=== PATIENT | female | born 1975 | race Caucasian/White ===

== ENCOUNTER 2024-02-27 00:48 | Day surgery (SDC) | payer OTHER, SELFPAY ==
[2024-02-18 10:15] VITALS: BMI 25.8
[2024-02-27 08:50] VITALS: BP 125/89; PULSE 80; RESP 18; TEMP 36.3; O2SAT 100
[2024-02-27] MEDS: LACTATED RINGERS 1,000 ML 150 ML IV CONT (09:03)
--- NOTE | 2024-02-27 09:27 | P.PNAN_ITS ---
Anes - Initial Pre Proc Eval Procedure: Operation Date: 02/27/24 10:00 Proposed Procedures p Screening Colonoscopy - Ankit Gonzalez MD Date/Time: 02/27/24 09:27 Surgeon: Ankit Gonzalez MD Pre Op Diagnosis: neoplasm screening Patient Data Age: 48 Gender: F Height: 1.7 m Weight: 77.8 kg Last Vital Signs Temp 97.3 F L 02/27/24 08:50 Pulse 80 02/27/24 08:50 Resp 18 02/27/24 08:50 BP 125/89 02/27/24 08:50 Pulse Ox 100 02/27/24 08:50 O2 Del Method Room Air 02/27/24 08:50 Allergies Allergy/AdvReac Type Severity Reaction Status Date / Time Penicillins Allergy Rash Verified 02/27/24 08:49 Home Medications Medication Instructions Recorded Confirmed Type valacyclovir 1 gram tablet 500 mg PO BID 7 days #14 tabs 12/25/21 02/18/24 Rx (Valtrex) escitalopram oxalate 10 mg tablet 10 mg PO DAILY 02/18/24 02/18/24 History nortriptyline 10 mg capsule 10 mg PO DAILY 02/18/24 02/18/24 History Patient hx anesthesia problems: none Family hx anesthesia problems: none Results Review: All pre-operative results and documents have been reviewed as part of the pre- operative evaluation. [facility] Social History Social History Smoking status: Never smoker Alcohol intake: current Alcohol use details: weekends Substance use: never Substance use type: does not use Living arrangements: with family Spiritual care concerns: No Anes - Eval Final PreProcedure Day of Procedure 02/27/24 09:27 Patient weight: normal Heart: regular rate and rhythm Lungs: clear to auscultation Airway: Mallampati scale class II Neurological: alert and oriented Last oral intake: >/= 8 hours ASA classification: II Emergent: no Anesthetic plan: proceed Anesthesia type and monitoring: general GIVS and standard monitoring Results Review: All pre-operative results and documents have been reviewed as part of the pre- operative evaluation. Informed Consent: The patient's anesthetic plan and its attendant risks and benefits were discussed with the patient/family/POA. Questions were solicited and answers provided to the satisfaction of the patient/family/POA.
--- NOTE | 2024-02-27 09:55 | PM.HPGS ---
History of Present Illness History of Present Illness Consent: Risks, benefits, and alternatives have been discussed and questions answered. Patient agrees to proceed with procedure. Chief complaint: neoplasm screening Narrative: Rosa Maria Pradhan is a 48 year old female here for first screening colonoscopy Review of Systems Review of Systems: All systems reviewed & are unremarkable except as noted in HPI and below PMFSH Past Medical History Medical History (Updated 02/27/24 @ 09:55 by Ankit Gonzalez MD) Colon cancer screening Social History Social History Smoking status: Never smoker Alcohol intake: current Alcohol use details: weekends Substance use: never Substance use type: does not use Living arrangements: with family Spiritual care concerns: No Meds Home Medications and Allergies Home Medications Medication Instructions Recorded Confirmed Type valacyclovir 1 gram tablet 500 mg PO BID 7 days #14 tabs 12/25/21 02/18/24 Rx (Valtrex) escitalopram oxalate 10 mg tablet 10 mg PO DAILY 02/18/24 02/18/24 History nortriptyline 10 mg capsule 10 mg PO DAILY 02/18/24 02/18/24 History Allergies Allergy/AdvReac Type Severity Reaction Status Date / Time Penicillins Allergy Rash Verified 02/27/24 08:49 Vital Signs Vital Signs - 24 hr 02/27/24 08:50 Temperature 97.3 F L Pulse Rate 80 Respiratory Rate 18 Blood Pressure 125/89 Pulse Oximetry 100 Oxygen Delivery Room Air Exam Const: General: comfortable and no acute distress HENMT: Face/Nose/Sinus: Normal nares present Eyes: General: appearance normal, both eyes and all related structures Neck: Neck: no JVD Resp: Auscultation: clear to auscultation bilaterally Cardio: Rate: regular rate Rhythm: regular rhythm GI: Inspection: non-distended GI Palp: Yes Soft to palpation Skin: General skin exam: normal color Neuro: General: gait normal Speech: normal speech Extrem: General: normal to inspection Psych: Mental Status: mental status grossly normal Assessment and Plan Assessment and plan (1) Colon cancer screening: Code(s): Z12.11 - Encounter for screening for malignant neoplasm of colon Status: Acute Assessment and Plan: colonoscopy
[2024-02-27 10:15] VITALS: BP 113/66; PULSE 86; RESP 22; O2SAT 100
[2024-02-27 10:25] VITALS: BP 113/74; PULSE 74; RESP 16; O2SAT 100
[2024-02-27 10:35] VITALS: BP 121/80; PULSE 65; RESP 13; O2SAT 100
== END 2024-02-27 10:36 | disposition home or self-care (01) ==
PROVIDERS: PCP Internal Medicine; Visit Provider Internal Medicine Gastroenterology
PROC: 0DJD8ZZ Inspection of Lower Intestinal Tract, Via Natural or Artificial Opening Endoscopic (ICD-10-PCS; CPT 45378; principal; 2024-02-27 10:00)
DX: Z12.11 Encounter for screening for malignant neoplasm of colon (principal); D12.5 Benign neoplasm of sigmoid colon; K64.8 Other hemorrhoids
CPT/HCPCS: 45385; 88305; J2704; J7120

== ENCOUNTER 2025-03-23 07:47 | Outpatient (CLI) | payer OTHER, SELFPAY ==
--- OUTSIDE RECORDS SUMMARY | 2025-03-23 07:54 | XMS_ITS | Clinical Summary ---
Author Organization [facility] Administrative Offices Address [address] [place] [id number] Care Team Providers Care Granulator Name Role Phone Navi Leroy MD Primary Care Provider Allergies Active Allergy Reactions Criticality Noted Date Comments Penicillins Hives High 09/12/2017 Medications escitalopram oxalate (LEXAPRO) 10 mg tablet TK 1 T PO D 11/01/2019 Active nortriptyline (PAMELOR) 10 mg capsule 11/01/2019 Active Active Problems Problem Noted Date Diagnosed Date Tobacco use 03/12/2019 Left sided chest pain Pain in both lower extremities Family History Medical History Relation Name Comments High Cholesterol Father Hypertension Father Healthy Maternal Grandfather Healthy Maternal Grandmother Healthy Mother COPD Paternal Grandfather Diabetes Paternal Grandmother Heart Disease Paternal Grandmother Hypertension Paternal Grandmother Relation Name Status Comments Father Alive Maternal Grandfather Alive Maternal Grandmother Alive Mother Alive Paternal Grandfather Paternal Grandmother Social History Tobacco Use Types Packs/Day Years Used Date Smoking Tobacco: Former Smokeless Tobacco: Never Tobacco Cessation:Counseling Given: Not Answered Comments:occ Alcohol Use Standard Drinks/Week Comments Yes 0 (1 standard drink = 0.6 oz pur e alcohol) ON WEEKENDS Comments No Sex and Gender Information Value Date Recorded Sex Assigned at Not on file Legal Sex Female 10:23 AM CDT Gender Identity Not on file Sexual Orientation Not on file 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 Not on file Not on file Last Filed Vital Signs Vital Sign Reading Time Taken Comments Blood Pressure 100/68 10/01/2022 10:08 AM FENCE ERECTOR SUPERVISOR Pulse 81 03/13/2019 12:06 PM CDT Temperature 36.7 C (98.1 F) 03/13/2019 12:06 PM CDT Respiratory Rate 14 03/13/2019 12:06 PM CDT Oxygen Saturation 99% 03/13/2019 12:06 PM CDT Inhaled Oxygen Concentration - - Weight 80.7 kg (178 lb) 10/01/2022 10:08 AM FENCE ERECTOR SUPERVISOR Height 170.2 cm (5' 7 ) 10/01/2022 10:08 AM FENCE ERECTOR SUPERVISOR Body Mass Index 27.88 10/01/2022 10:08 AM FENCE ERECTOR SUPERVISOR Plan of Treatment Health Maintenance Due Date Last Done Comments DTAP/TDAP/TD VACCINES (1 - Tdap) 1994 HEPATITIS B VACCINES (1 of 3 - 19+ 3-dose series) 1994 COLORECTAL SCREENING 2020 Colorectal Cancer Screening 2020 FIT-DNA Q 3 years 2020 FIT/FOBT Q 1 year 2020 Flex Sig/CT Colonography Q 5 years 2020 BREAST CANCER SCREENING 10/01/2023 10/01/20, 10/01/2021, 01/10/2020, Additional history exists INFLUENZA VACCINE (#1) 2024 PAP SMEAR 10/01/2025 10/01/2022, 09/11, 11/11/2019 CERVICAL CANCER SCREENING 10/01/2027 HPV/Cotest (21-29) 10/01/2027 10/01/2022, 1 12/01/2020, 11/11/2019 HPV/Cotest (30-65) 10/01/2027 10/01/2022, 1 12/01/2020, 11/11/2019 Procedures Procedure Name Priority Date/Time Associated Diagnosis Comments MAMMO 3D WARREN SCREEN BILAT W OR WO CAD Routine 10/01/2022 10:56 AM FENCE ERECTOR SUPERVISOR Visit for screening mammogram CERV/VAG CYTO SCREEN PAP RLFX HPV Routine 10/01/2022 10:45 AM FENCE ERECTOR SUPERVISOR Encounter for gynecological examination with abnormal finding from Last 3 Months or Most Recently Relevant to Health Maintenance Results * MAMMO SCRN BILAT 3D WARREN W OR WO CAD (10/01/2022 10:56 AM FENCE ERECTOR SUPERVISOR) Anatomical Region Laterality Modality Breast Bilateral Mammography 10/01/2022 10:5 6 AM FENCE ERECTOR SUPERVISOR Impressions 10/02/2022 1:49 PM FENCE ERECTOR SUPERVISOR IMPRESSION: No mammographic evidence of malignancy in the bilateral breasts. Routine screening mammography is recommended in 1 year. OVERALL FINAL ASSESSMENT: BI-RADS CATEGORY 1 - Negative DICTATION LOCATION: [facility] Narrative 10/02/2022 1:49 PM FENCE ERECTOR SUPERVISOR EXAMINATION: BILATERAL SCREENING DIGITAL MAMMOGRAPHY WITH TOMOSYNTHESIS AND CAD DATE: 10/01/2022 10:56 AM HISTORY: Routine screening mammography. COMPARISON: Multiple prior mammograms with dates ranging from 10/01/2021 to 09/23/2016. TECHNIQUE: A bilateral screening mammogram was performed. Low-dose full-field digital breast tomosynthesis examination was performed with 2D and 3D acquisitions. Examination is read in conjunction with computer aided detection. BREAST COMPOSITION: The breasts are heterogeneously dense, which may obscure small masses. FINDINGS: There are no suspicious masses, suspicious calcifications, or other suspicious findings in either breast. There has been no suspicious interval change. Computer aided detection was used in the interpretation of this examination. Procedure Note Marko Rodriguez MD - 10/02/2022 EXAMINATION: BILATERAL SCREENING DIGITAL MAMMOGRAPHY WITH TOMOSYNTHESIS AND CAD DATE: 10/01/2022 10:56 AM HISTORY: Routine screening mammography. COMPARISON: Multiple prior mammograms with dates ranging from 10/01/2021 to 09/23/2016. TECHNIQUE: A bilateral screening mammogram was performed. Low-dose full-field digital breast tomosynthesis examination was performed with 2D and 3D acquisitions. Examination is read in conjunction with computer aided detection. BREAST COMPOSITION: The breasts are heterogeneously dense, which may obscure small masses. FINDINGS: There are no suspicious masses, suspicious calcifications, or other suspicious findings in either breast. There has been no suspicious interval change. Computer aided detection was used in the interpretation of this examination. IMPRESSION: No mammographic evidence of malignancy in the bilateral breasts. Routine screening mammography is recommended in 1 year. OVERALL FINAL ASSESSMENT: BI-RADS CATEGORY 1 - Negative DICTATION LOCATION: [facility] Mili Longoria NP MAMMO ORDERABLES Final Result * CERV/VAG CYTO SCREEN PAP RLFX HPV (10/01/2022 10:45 AM FENCE ERECTOR SUPERVISOR) CLINICAL INFORMATION Ángel PenaJulio Cesar Chen Comment:NON POSTMENOPAUSAL LAST MENSTRUAL PERIOD Ángel PenaJulio Cesar Chen Comment:[id number] PREV PAP: Ángel Chen Comment:NONE GIVEN PREV BX: Ángel Chen Comment:NONE GIVEN SOURCE Ángel Chen Comment:Endocervix ADEQUACY: Ángel JeanJulio Cesar Chen Comment: Satisfactory for evaluation. Endocervical/transformation zone component present. PAP INTERP Ángel Chen Comment:Negative for intraep ithelial lesion or malignancy. COMMENT (PAP TEST) Q uest JeanJulio Cesar Chen Comment: This Pap test has been evaluated with computer assisted technology. SPORTS BOOK SERVER: Qu eileen Chen Comment: LMT, CT(ASCP) CT screening location: [place] [address] Administration [place] [facility] REVIEW SPORTS BOOK SERVER: Ángel Chen Comment: DDS, CT(ASCP) CT screening location: [place] [address] Administration [place] [facility] EXPLANATORY NOTE Que st Elizabeth Chen Comment: EXPLANATORY NOTE: The Pap is a screening test for cervical cancer. It is not a diagnostic test and is subject to false negative and false positive results. It is most reliable when a satisfactory sample, regularly obtained, is submitted with relevant clinical findings and history, and when the Pap result is evaluated along with historic and current clinical information. Test Performed at: [facility] [address] [place] [id number] [facility] Genital SWAB OF ENDOCERVIX / Unknown 10/01/2022 10:45 AM FENCE ERECTOR SUPERVISOR 10/01/2022 10:29 PM FENCE ERECTOR SUPERVISOR Mili Longoria NP PATHOLOGY/CYTOLOGY ORDERABLES Final Result [facility] [phone] [facility] [address] [place] [id number] from Last 3 Months or Most Recently Relevant to Health Maintenance Insurance [employer] OPEN ACCESS Advance Directives For more information, please contact: [phone] * Full Code (Latest Code Status on File) Date Activated Date Inactivated Comments 10/08/2017 1:08 PM 10/08/2017 8:08 PM Care Teams Granulator Relationship Specialty Start Date End Date Navi Leroy MD [address] [place] [address] PCP - General 10/31/15
--- OUTSIDE RECORDS SUMMARY | 2025-03-23 07:55 | XMS_ITS | Referral Summary ---
Author Organization [facility] Address [address] [place] [address] Care Team Providers Care Manager Bakery Name Role Phone Navi Leroy MD Primary Care Provider [phone] Allergies Active Allergy Reactions Criticality Noted Date Comments Penicillins Hives High 09/12/2017 Medications escitalopram (LEXAPRO) 10 mg tablet Take 10 mg by mouth daily 07/09/2021 Active nortriptyline (PAMELOR) 10 mg capsule 06/17/2021 Active MAGNESIUM ORAL Take by mouth Active phenylephrine/di phenhydramine (ALLERGY AND SINUS RELIEF ORAL) Take by mouth Active Active Problems Problem Noted Date Diagnosed Date Allergic rhinitis Social History Tobacco Use Types Packs/Day Years Used Date Smoking Tobacco: Every Day Cigarettes Smokeless Tobacco: Never AUDIT-C Answer Date Recorded Q1: How often do you have a drink containing alc ohol? 2-4 times a month 07/19/2021 Q2: How many drinks containi ng alcohol do you have on a typical day when you are drinking? 5 or 6 07/19/2021 Frequency of Binge Drinking Not on file 07/2021 Personal Safety Answer Date Recorded Getting School Help Needed Not on file 12/31 Comments Unknown Sex and Gender Information Value Date Recorded Sex Assigned at Not on file Legal Sex Female 10:15 AM DENTAL HYGIENE PROFESSOR Gender Identity Not on file Sexual Orientation Not on file Last Filed Vital Signs Vital Sign Reading Time Taken Comments Blood Pressure 121/85 07/19/2021 8:31 AM CDT Pulse - - Temperature - - Respiratory Rate - - Oxygen Saturation - - Inhaled Oxygen Concentration - - Weight 72.6 kg (160 lb) 07/19/2021 8:31 AM CDT Height 170.2 cm (5' 7 ) 07/19/2021 8:31 AM CDT Body Mass Index 25.06 07/19/2021 8:31 AM CDT Plan of Treatment Not on file Insurance [employer] [id number] OPEN ACCESS Care Teams Manager Bakery Relationship Specialty Start Date End Date Navi Leroy MD PCP - General Internal Medicine 06/05/21
--- OUTSIDE RECORDS SUMMARY | 2025-03-23 07:55 | XMS_ITS | Clinical Summary ---
Author Organization [facility] Address [address] [place] [address] Care Team Providers Care Pallet Stone Positioner Name Role Phone Navi Leroy MD Primary Care Provider [phone] Allergies Active Allergy Reactions Criticality Noted Date Comments Penicillins Hives High 09/12/2017 Medications escitalopram (LEXAPRO) 10 mg tablet Take 10 mg by mouth daily 07/09/2021 Active nortriptyline (PAMELOR) 10 mg capsule 06/17/2021 Active MAGNESIUM ORAL Take by mouth Active phenylephrine/di phenhydramine (ALLERGY AND SINUS RELIEF ORAL) Take by mouth Active Active Problems Problem Noted Date Diagnosed Date Allergic rhinitis Medical History Medical History Date Comments Allergic rhinitis Anxiety Family History Medical History Relation Name Comments No Known Problems Father No Known Problems Mother Relation Name Status Comments Father Mother Social History Tobacco Use Types Packs/Day Years [...] on file Legal Sex Female 10:15 AM CLINIC LEAD Gender Identity Not on file Sexual Orientation Not on file Obstetrics History Last Filed Vital Signs Vital Sign Reading [...] Plan of Treatment Not on file Insurance [employer] OPEN ACCESS Care Teams Pallet Stone Positioner Relationship Specialty Start Date End Date Navi Leroy MD PCP - General Internal Medicine 06/05/21
--- OUTSIDE RECORDS SUMMARY | 2025-03-23 07:55 | XMS_ITS | Clinical Summary ---
Author Organization [facility] Address [address] [place] [address] Care Team Providers Care Manager Imaging Name Role Phone Navi Leroy MD Primary Care Provider [phone] Allergies Active Allergy Reactions Criticality Noted Date Comments Penicillins Hives 06/16/2024 Medications nortriptyline (PAMELOR) 10 MG capsule take 2 capsules by mouth every day at bedtime 05/19/2024 Active escitalopram (LEXAPRO) 10 MG tablet Take 1 tablet (10 mg total) by mouth daily. 06/08/2024 Active Immunizations Immunization Administration Dates Next Due Tdap (Boostrix) 06/16/2024 Social History Tobacco Use Types Packs/Day Years Used Date Smoking Tobacco: Never Smokeless Tobacco: Never Tobacco Cessation:Counseling Given: Not Answered Alcohol Use Standard Drinks/Week Comments Yes 0 (1 standard drink = 0.6 oz pur e alcohol) social Comments No Sex and Gender Information Value Date Recorded Sex Assigned at Not on file Legal Sex Female 5:51 PM CHIEF NURSE Gender Identity Not on file Sexual Orientation Not on file Last Filed Vital Signs Vital Sign Reading Time Taken Comments Blood Pressure 135/108 06/16/2024 10:01 AM CDT Pulse 88 06/16/2024 10:01 AM CDT Temperature 36.7 C (98 F) 06/16/2024 10:01 AM CDT Respiratory Rate 18 06/16/2024 10:01 AM CDT Oxygen Saturation 100% 06/16/2024 10:01 AM CDT Inhaled Oxygen Concentration - - Weight 77.1 kg (170 lb) 06/16/2024 10:01 AM CDT Height 170.2 cm (5' 7 ) 06/16/2024 10:01 AM CDT Body Mass Index 26.63 06/16/2024 10:01 AM CDT Plan of Treatment Health Maintenance Due Date Last Done Comments Cervical Cancer Screening Pap Smear (Age 30 to 64) Every 3 Years 1975 Colorectal Cancer Screening Colonoscopy (10 Years) 1975 Annual Physical 1978 Hepatitis C 1993 Hepatitis B Vaccines (1 of 3 - 19+ 3-dose series) 1994 Cervical Cancer Screening Pap with HPV Testing (Age 30 to 64) Every 5 Years 2005 Cervical Cancer Screening with HPV 2005 COVID-19 Vaccine ( season) 2024 10/24/2021, 03/16/2021, 02/16/2021 Mammogram Screening 10/01/2024 10/01/2022, 10/01/2021, 01/10/2020, Additional history exists DTaP, Tdap and Td Vaccines (3 - Td or Tdap) 06/16/2034 06/16/2024, 08/17/2018 Meningococcal B Vaccine Aged Out No l onger eligible based on patient's age to complete this topic Meningococcal Vaccine Aged Out No bebeto tom eligible based on patient's age to complete this topic Pneumococcal Vaccine: Pediatrics (0 to 5 Years) and At-Risk Patients (6 to 49 Years) Aged Out No longer eligible based on patient's age to complete this topic RSV Immunizations Under 20 Months Aged Out No longer eligible based on patient's age to complete this topic Insurance [employer] Care Teams Manager Imaging Relationship Specialty Start Date End Date Navi Leroy MD [address] [place] [address] PCP - General INTERNAL MEDICINE 06/16/24
[2025-03-23 08:10] LABS: Hematocrit 39.6 % (35.0-49.0); Mean Corpuscular HGB Conc 32.8 g/dL (32-36); Mean Corpuscular Hemoglobin 30.5 pg (27.0-31.0); Mean Platelet Volume 10.7 fl (9.2-11.8); Platelet Count Result 220 K/mm3 (150-420); Red Blood Count 4.26 M/mm3 (4.20-5.40); Red Cell Distribution Width 12.6 % (11.6-14.4); White Blood Count 5.5 K/mm3 (4.8-10.8)
[2025-03-23 10:36] LABS: Alanine Aminotransferase 13 U/L (6-35); Albumin Level 4.4 g/dL (3.5-5.1); Alkaline Phosphatase 58 U/L (38-126); Anion Gap 6 mmol/L (4-12); Aspartate Amino Transferase 19 U/L (14-36); Bilirubin,Total 0.4 mg/dL (0.2-1.3); Blood Urea Nitrogen 16 mg/dL (7-17); Calcium 9.2 mg/dL (8.4-10.2); Carbon Dioxide 24 mmol/L (22-30); Chloride 110 mmol/L (98-107); Cholesterol 198 mg/dL (0-200); Estimated Glomerular Filt Rate > 60; Glucose 89 mg/dL (65-110); HDL Direct 57 mg/dL; LDL Cholesterol Calculated 129 mg/dL (<130); Osmolality Calculated 290 mOsm/kg (285-295); Potassium 4.7 mmol/L (3.4-5.0); Sodium 140 mmol/L (137-145); Total Protein 6.9 g/dL (6.3-8.2); Triglycerides 60 mg/dL (<150)
== END 2025-03-23 07:48 | disposition home or self-care (01) ==
PROVIDERS: PCP Internal Medicine; Visit Provider Nurse Practitioner Family
DX: F41.9 Anxiety disorder, unspecified (principal); G43.001 Migraine without aura, not intractable, with status migrainosus; K58.9 Irritable bowel syndrome, unspecified; G47.33 Obstructive sleep apnea (adult) (pediatric)
CPT/HCPCS: 36415; 80053; 80061; 84439; 84443; 85027